=== PATIENT | female | born 1955 | race African-American/Black ===

== ENCOUNTER 2020-05-23 10:27 | Emergency (ER) | payer MEDICARE, MEDICAID ==
[~2020-05-23] VITALS: Ht 157.5 cm; Wt 68.2 kg
[~2020-05-23 10:27] MED LIST: AMLO10TA55 PO; LEVO25TA9 PO; LISI10TA PO; NORT50CA PO; SIMV-259 PO
[2020-05-23 10:32] VITALS: BP 117/81
[2020-05-23] MEDS ORDERED: IBUPROFEN 400 MG TABLET PO ONE (12:00)
[2020-05-23] MEDS ORDERED: CLINDAMYCIN HCL 150 MG CAPSULE PO ONE (13:15)
== END 2020-05-23 13:51 | disposition home or self-care (01) ==
LOC: EMS 10:27
DX: S93.402A Sprain of unspecified ligament of left ankle, initial encounter (principal); K04.7 Periapical abscess without sinus; I10 Essential (primary) hypertension; W19.XXXA Unspecified fall, initial encounter; Y93.89 Activity, other specified; Y92.89 Other specified places as the place of occurrence of the external cause; Y99.8 Other external cause status
CPT/HCPCS: 99283